=== PATIENT | female | born 1965 | race Caucasian/White ===

== ENCOUNTER → 2020-04-26 | Outpatient (CLI) | payer BC | LOC: MC.RAD 16:33 | DX: Z12.31 Encounter for screening mammogram for malignant neoplasm of breast (principal) ==

== ENCOUNTER 2021-01-28 12:30 | Emergency (ER) | payer OTHER, BC ==
[~2021-01-28] VITALS: Ht 165.1 cm; Wt 113.6 kg
[2021-01-28 12:47] VITALS: BP 116/72; TEMP 98.2
[2021-01-28] MEDS ORDERED: NORCO 325 MG-51 TAB PO (14:07)
[2021-01-28 14:12] VITALS: PULSE 83
== END 2021-01-28 14:14 | disposition home or self-care (01) ==
LOC: COL.ER 12:30
DX: S52.501A Unspecified fracture of the lower end of right radius, initial encounter for closed fracture (principal); W01.0XXA Fall on same level from slipping, tripping and stumbling without subsequent striking against object, initial encounter; Y93.6A Activity, physical games generally associated with school recess, summer camp and children; Y92.219 Unspecified school as the place of occurrence of the external cause

== ENCOUNTER → 2022-06-19 | Outpatient (CLI) | payer BC ==
[~2022-06-19] MED LIST: NORCO 325 MG-51 TAB PO
== END ==
LOC: MC.RAD 16:38
DX: Z12.31 Encounter for screening mammogram for malignant neoplasm of breast (principal)

== ENCOUNTER → 2024-01-07 | Outpatient (CLI) | payer BC | LOC: MC.RAD 15:18 | DX: Z12.31 Encounter for screening mammogram for malignant neoplasm of breast (principal) ==